=== PATIENT | female | born 1945 | race Caucasian/White ===

== ENCOUNTER 2018-12-30 14:02 | Emergency (ER) | payer MEDICARE, BC ==
--- NOTE | 2018-12-30 16:07 | RAD ---
Exam:4 views left HISTORY: Fall. Pain. COMPARISON: None FINDINGS: Nondisplaced fracture involving the fifth metacarpal. No evidence of intra-articular extens ion. Mild degenerative change in the distal interphalangeal joint space of the first digit. IMPRESSION: Fifth metacarpal fracture.
== END 2018-12-30 15:45 | disposition home or self-care (01) ==
LOC: SCSER 14:02
DX: S62.397A Other fracture of fifth metacarpal bone, left hand, initial encounter for closed fracture (principal); E11.9 Type 2 diabetes mellitus without complications; E78.5 Hyperlipidemia, unspecified; I10 Essential (primary) hypertension; F32.9 Major depressive disorder, single episode, unspecified; F41.9 Anxiety disorder, unspecified; W18.2XXA Fall in (into) shower or empty bathtub, initial encounter
CPT/HCPCS: 29125; 93005

== ENCOUNTER 2019-01-10 19:33 | Emergency (ER) | payer MEDICARE, BC ==
[2019-01-10 20:07] LABS: #Basophils 0.1 thou/uL (0.0-0.2); #Eosinphils 0.1 thou/uL (0.0-0.7); #Lymphocytes 1.8 thou/uL (1.20-3.40); #Monocytes 0.6 thou/uL (0.11-0.59); #Neutrophils 2.9 thou/uL (1.40-6.50); %Basophils 1.5 % (0.0-1.0); %Eosinophils 2.2 % (0.0-10.0); %Lymphocytes 32.7 % (21.0-51.0); %Monocytes 10.1 % (0.0-10.0); %Neutrophils 53.6 % (42.0-75.0); Hemoglobin 12.1 g/dL (12.0-16.0); Mean Corpuscular HGB CONC 32.6 g/dL (32.0-36.0); Mean Corpuscular Hemoglobin 28.1 pg (27.0-31.0); Mean Corpuscular Volume 86.2 fL (78.0-98.0); Platelet Count 266 thou/uL (130-400); RBC Distribution Width 15.3 % (11.5-14.5); Red Blood Cell (RBC) Count 4.31 mill/uL (4.20-5.40); White Blood Cell (WBC) Count 5.5 thou/uL (4.8-10.8)
[2019-01-10 20:11] LABS: Bilirubin Negative (Negative); Blood, Urine Trace (Negative); Clarity Hazy (Clear); Glucose, Urine (Dipstick) Negative (Negative); Leukocyte Large (Negative); Nitrite Negative (Negative); Protein, Urine (Dipstick) Negative (Neg-Trace); Urobilinogen 0.2 mg/dL (Less than 2)
[2019-01-10 20:11] LABS: PTT 26.3 SEC (22.9-36.1); Prothrombin Time 12.9 SEC (12.0-14.7)
--- NOTE | 2019-01-10 20:12 | CT ---
CT Brain WO Con HISTORY: Fall with altered mental status. COMPARISON: None. FINDINGS: There is generalized ventricular and sulcal prominence. Decreased attenuation to the perive ntricular white matter is consistent with chronic white matter change. There are no signs of intracerebral hemorrhage or extra-axial fluid collections. The mastoid air cells and visualized sinus es are clear. IMPRESSION: No acute intracranial abnormalities.
[2019-01-10 20:21] LABS: Bacteria/HPF 2+ HPF (None Seen); RBC/HPF 0-3 HPF (0-3); WBC/HPF 21-50 HPF (0-3)
[2019-01-10 20:21] LABS: ALT (SGPT) 14 U/L (8-55); AST (SGOT) 15 U/L (5-34); Albumin 4.3 g/dL (3.4-4.8); Alkaline Phosphatase 123 U/L (40-150); Anion Gap 14 mmol/L (10-20); BUN (Urea Nitrogen) 15 mg/dL (9.8-20.1); Bilirubin, Total 0.5 mg/dL (0.2-1.2); Calc. Creatinine Clearance 0 mL/min (70-130); Calcium 9.5 mg/dL (7.8-10.44); Carbon Dioxide 24 mmol/L (23-31); Chloride 107 mmol/L (98-107); Estimated GFR-MDRD 66; Globulin 2.5 g/dL (2.4-3.5); Glucose 168 mg/dL (83-110); Potassium 3.9 mmol/L (3.5-5.1); Protein, Total 6.8 g/dL (6.0-8.3); Sodium 141 mmol/L (136-145)
--- NOTE | 2019-01-10 20:24 | RAD ---
XR Chest 1 View Portable HISTORY: Fall in shower. COMPARISON: None. FINDINGS: Heart size is enlarged. Mediastinal structures are unremarkable. The lungs are clear of inf iltrates. No rib fractures identified. IMPRESSION: Cardiomegaly.
[2019-01-10] MEDS ORDERED: cefTRIAXone\\ROCEPHIN 1 GM VIAL ONE (20:30)
[2019-01-10] MEDS ORDERED: Lidocaine 1% PF 5 ML VIAL ONE (20:30)
== END 2019-01-10 20:59 | disposition home or self-care (01) ==
LOC: SCSER 19:33
DX: R41.82 Altered mental status, unspecified (principal); N39.0 Urinary tract infection, site not specified; Z86.73 Personal history of transient ischemic attack (TIA), and cerebral infarction without residual deficits; E11.9 Type 2 diabetes mellitus without complications; E78.5 Hyperlipidemia, unspecified; I10 Essential (primary) hypertension; F41.9 Anxiety disorder, unspecified; F32.9 Major depressive disorder, single episode, unspecified; Z79.899 Other long term (current) drug therapy; Z79.84 Long term (current) use of oral hypoglycemic drugs
CPT/HCPCS: 36415; 70450; 71045; 80053; 81003; 81015; 85025; 85610; 85730; 87086; 96372; J0696; J2001

== ENCOUNTER 2019-01-26 11:39 | Emergency (ER) | payer MEDICARE, BC ==
--- NOTE | 2019-01-26 12:08 | CT ---
Head CT without contrast 01/26/2019: COMPARISON: 01/10/2019 HISTORY: Altered mental status TECHNIQUE: Axial CT imaging at 5 mm intervals from vertex through skull base without contrast FINDINGS: The imaged paranasal sinuses and mastoid air cells are well aerated. No displaced calvarial fracture is seen. No intracranial hemorrhage, midline shift, mass effect, or ventricular enlargement. Mild periventricular hypodensity suggests small vessel disease. IMPRESSION: No acute findings.
--- NOTE | 2019-01-26 12:18 | CT ---
CT cervical spine: 01/26/2019 COMPARISON: None HISTORY: Pain TECHNIQUE: Axial CT imaging at 2.5 mm intervals from skull base through lung apices without contrast. Coronal and sagittal reformatted imaging obtained. FINDINGS: The visualized paranasal sinuses and mastoid air cells are unremarkable. The dens, occipita l condyles, C1-2 articulation, and dens demonstrate no acute findings. The visualized lung apices are unremarkable. There is moderate degenerative change at the atlantoaxial interspace. Craniocervical junction and cer vicothoracic junction are unremarkable. No prevertebral soft tissue swelling. No displaced fracture or evidence of dislocation is noted. IMPRESSION: No acute osseous abnormality.
--- NOTE | 2019-01-26 12:24 | CT ---
CT of the facial bones: 01/26/2019 COMPARISON: None HISTORY: Pain TECHNIQUE: Axial CT imaging at 2.5 mm intervals through the facial bones without contrast. Coronal an d sagittal reformatted imaging obtained. FINDINGS: There is degenerative change at the atlantoaxial interspace. The frontal sinuses, ethmoid air cells, sphenoid sinuses, and left maxillary sinus appear within norm al limits. There is mild mucosal thickening involving the alveolar recess of the right maxillary sinus. Imaged portions of the mastoid air cells appear within normal limits. The nasal bones, zygomatic arches, and pterygoid plates are unremarkable. There is prominent degenerative change involving the bilateral temporomandibular joints. There is no acute fracture of the mandible or maxilla. There is subtle enophthalmos on the right. There is mild soft tissue swelling overlying the right orbit inferiorly. On the coronal reformatted imaging there i s a subtle fracture involving the orbital floor on the right with approximately 3 mm of inferior displacement. The left orbital floor appears intact on the coronal imaging. The medial orbital wall i s intact bilaterally. IMPRESSION: Right periorbital soft tissue swelling with a right orbital floor fracture and mild assoc iated right enophthalmos.
[2019-01-26 12:31] LABS: #Lymphocytes 1.1 thou/uL (1.20-3.40); #Monocytes 0.5 thou/uL (0.11-0.59); #Neutrophils 4.6 thou/uL (1.40-6.50); %Basophils 0.6 % (0.0-1.0); %Eosinophils 0.3 % (0.0-10.0); %Lymphocytes 17.9 % (21.0-51.0); %Monocytes 7.4 % (0.0-10.0); %Neutrophils 73.8 % (42.0-75.0); Hemoglobin 13.1 g/dL (12.0-16.0); Mean Corpuscular HGB CONC 33.7 g/dL (32.0-36.0); Mean Corpuscular Hemoglobin 28.4 pg (27.0-31.0); Mean Corpuscular Volume 84.4 fL (78.0-98.0); Mean Platelet Volume 7.8 fL (7.4-10.4); Platelet Count 231 thou/uL (130-400); RBC Distribution Width 14.5 % (11.5-14.5); White Blood Cell (WBC) Count 6.3 thou/uL (4.8-10.8)
[2019-01-26 12:55] LABS: ALT (SGPT) 16 U/L (8-55); AST (SGOT) 15 U/L (5-34); Acetaminophen Less than 6.0 mcg/mL (10.0-30.0); Albumin 4.6 g/dL (3.4-4.8); Alcohol Less than 10 mg/dL (Less than 10); Alkaline Phosphatase 137 U/L (40-150); Anion Gap 13 mmol/L (10-20); BUN (Urea Nitrogen) 19 mg/dL (9.8-20.1); Bilirubin, Total 0.6 mg/dL (0.2-1.2); Calc. Creatinine Clearance 0 mL/min (70-130); Carbon Dioxide 25 mmol/L (23-31); Chloride 102 mmol/L (98-107); Estimated GFR-MDRD 67; Globulin 2.3 g/dL (2.4-3.5); Glucose 119 mg/dL (83-110); Potassium 3.9 mmol/L (3.5-5.1); Protein, Total 6.9 g/dL (6.0-8.3); Salicylate Less than 8.0 mg/dL (15.0-30.0); Sodium 136 mmol/L (136-145)
[2019-01-26 15:10] LABS: Bilirubin Negative (Negative); Blood, Urine Negative (Negative); Glucose, Urine (Dipstick) Negative (Negative); Leukocyte Negative (Negative); Nitrite Negative (Negative); Protein, Urine (Dipstick) Negative (Neg-Trace); Urobilinogen 0.2 mg/dL (Less than 2)
[2019-01-26 15:16] LABS: Clarity Clear (Clear)
[2019-01-26 15:21] LABS: Cocaine Metabolite Screen Not Detected (NotDetected); Medtox Reader # READER 4; Methamphetamine Not Detected (NotDetected); Opiate Screen Not Detected (NotDetected); Phencyclidine (PCP) Not Detected (NotDetected); THC/Cannabinoid Screen Not Detected (NotDetected)
[2019-01-26 15:22] LABS: Amphetamine Not Detected (NotDetected); Barbiturates Screen Not Detected (NotDetected); Benzodiazepine Screen Detected (NotDetected); Medtox Control Line Valid? VALID (VALID); Methadone Not Detected (NotDetected); Oxycodone Screen Not Detected (NotDetected); Tricyclic Screen Not Detected (NotDetected)
[2019-01-26] MEDS ORDERED: Haloperidol Lactate 5 MG/ML VIAL ONE (16:49)
== END 2019-01-26 23:55 ==
LOC: ERS 11:39
DX: S00.83XA Contusion of other part of head, initial encounter (principal); F29 Unspecified psychosis not due to a substance or known physiological condition; F22 Delusional disorders; E11.9 Type 2 diabetes mellitus without complications; E78.5 Hyperlipidemia, unspecified; E78.00 Pure hypercholesterolemia, unspecified; I10 Essential (primary) hypertension; F41.9 Anxiety disorder, unspecified; F32.9 Major depressive disorder, single episode, unspecified; Z79.01 Long term (current) use of anticoagulants; Z79.899 Other long term (current) drug therapy; Z86.73 Personal history of transient ischemic attack (TIA), and cerebral infarction without residual deficits; Z79.84 Long term (current) use of oral hypoglycemic drugs; X58.XXXA Exposure to other specified factors, initial encounter
CPT/HCPCS: 70450; 70486; 72125; 80053; 80306; 80307; 81003; 84443; 84484; 85025; 93005; 96374; J1630

== ENCOUNTER 2020-05-19 18:52 | Inpatient (IN) | payer MEDICARE, BC ==
--- NOTE | 2020-05-19 19:26 | RAD ---
EXAM: CHEST ONE VIEW HISTORY: Altered mental status. COMPARISON: 01/10/2019 FINDINGS: Cardiac silhouette is enlarged. The pulmonary vasculature is within normal limits. The lungs are cl r. Large hiatal hernia is seen in the midline. Osteopenia is present. No other interval change IMPRESSION: 1. Large hiatal hernia. 2. Cardiomegaly. 3. No acute cardiopulmonary process. 4. Osteopenia.
[2020-05-19 19:33] LABS: #Eosinphils 0.1 thou/uL (0.0-0.7); #Lymphocytes 1.2 thou/uL (1.20-3.40); #Monocytes 0.9 thou/uL (0.11-0.59); #Neutrophils 9.2 thou/uL (1.40-6.50); %Basophils 0.4 % (0.0-1.0); %Eosinophils 0.8 % (0.0-10.0); %Lymphocytes 10.4 % (21.0-51.0); %Monocytes 8.1 % (0.0-10.0); %Neutrophils 80.3 % (42.0-75.0); Hemoglobin 13.2 g/dL (12.0-16.0); Mean Corpuscular HGB CONC 33.2 g/dL (32.0-36.0); Mean Corpuscular Hemoglobin 29.5 pg (27.0-31.0); Mean Corpuscular Volume 88.7 fL (78.0-98.0); Mean Platelet Volume 7.9 fL (7.4-10.4); Platelet Count 233 thou/uL (130-400); RBC Distribution Width 12.7 % (11.5-14.5); Red Blood Cell (RBC) Count 4.49 mill/uL (4.20-5.40); White Blood Cell (WBC) Count 11.4 thou/uL (4.8-10.8)
[2020-05-19 19:54] LABS: ALT (SGPT) 8 U/L (8-55); AST (SGOT) 12 U/L (5-34); Albumin 3.9 g/dL (3.4-4.8); Alkaline Phosphatase 87 U/L (40-110); Anion Gap 19 mmol/L (10-20); BUN (Urea Nitrogen) 16 mg/dL (9.8-20.1); Bilirubin, Total 0.4 mg/dL (0.2-1.2); Calc. Creatinine Clearance 0 mL/min (70-130); Calcium 9.2 mg/dL (7.8-10.44); Carbon Dioxide 18 mmol/L (23-31); Chloride 105 mmol/L (98-107); Globulin 2.6 g/dL (2.4-3.5); Glucose 118 mg/dL (83-110); Magnesium 1.8 mg/dL (1.6-2.6); Potassium 3.8 mmol/L (3.5-5.1); Protein, Total 6.5 g/dL (6.0-8.3); Sodium 138 mmol/L (136-145)
--- NOTE | 2020-05-19 19:56 | CT ---
CT HEAD WITHOUT IV CONTRAST COMPARISON: 01/11/2020 HISTORY: Altered mental status TECHNIQUE: Axial CT imaging at 5 mm intervals from vertex through skull base without contrast FINDINGS: There is decreased attenuation in the periventricular white matter which is nonspecific but likely re flective of chronic small vessel ischemic changes. There is mild cerebral volume loss. The ventricular system is normal in size, shape, and position for the degree of sulcal atrophy. There is no evidence of an acute cortical infarction, hemorrhage, mass effect, or midline shift. Skull base has a normal CT appearance. Visualized paranasal sinuses are clear. Osseous structures appear intact. CT head is stable compared to prior exam. IMPRESSION: 1. No acute intracranial abnormality demonstrated. 2. Chronic small vessel ischemic changes and cerebral volume loss.
[2020-05-19 20:19] LABS: Bilirubin Negative (Negative); Blood, Urine Trace (Negative); Glucose, Urine (Dipstick) Negative (Negative); Ketone, Urine Trace mg/dL (Negative); Leukocyte Negative (Negative); Nitrite Negative (Negative); Protein, Urine (Dipstick) Negative (Neg-Trace); Urobilinogen 0.2 mg/dL (Less than 2); pH, Urine 6.5 (5.0-9.0)
[2020-05-19 20:20] LABS: Clarity Clear (Clear)
[2020-05-19 20:25] LABS: Bacteria/HPF None Seen HPF (None Seen); RBC/HPF None Seen HPF (0-3); Squamous Epithelial 0-3 HPF (0-3); WBC/HPF None Seen HPF (0-3)
[2020-05-19] MEDS ORDERED: Aspirin Chewable 81 MG TAB ONE (21:50)
[2020-05-19] MEDS ORDERED: Acetaminophen 325 MG TAB PO PRN (22:07)
[2020-05-19 22:36] LABS: Hemoglobin A1c 5.6 % (4.0-6.0)
[2020-05-19 22:47] LABS: Phosphorus 3.9 mg/dL (2.3-4.7)
[2020-05-20] MEDS: Lactated Ringer's 1,000 ML IV SCH ×3 (00:12→21:41)
[2020-05-20 01:08] VITALS: BMI 19.1
--- NOTE | 2020-05-20 04:23 | PDOC.FPRHP ---
- History of Present Illness Chief Complaint: AMS, weakness History of Present Illness: Patient is a 74 yo female with PMH of Lewey body dementia, TIA, DMII, and HLD who present via EMS for AMS and possibly syncope. According to the patient's daughter, earlier this evening (around 1700) the patient began having difficulty answering questions. She is typically AAOx3 and able to identify her daughter and granddaughter, however she was unable to do so. EMS was called and while the patient was being transported outside on the seat of her walker, she slumped over and her lips became blue. The daughter believes that she was also breathing very shallow during this time. Daughter denies any fever/chills, complaints of chest pain or SOB, N/V/D, or sick contacts. The patient is incontinent at baseline and has a history of UTIs in the past. Denies any change in appetite, decreased PO intake, or difficulty swallowing. ED Course: Aspiring 324 mg - Allergies/Adverse Reactions Allergies Allergy/AdvReac Type Severity Reaction Status Date / Time No Known Allergies Allergy Verified 01/11/20 21:34 - Home Medications Medication Instructions Recorded Confirmed Type Clopidogrel Bisulfate [Plavix] 75 mg PO DAILY 01/11/20 05/20/20 History Divalproex [Depakote] 2 tab PO HS 01/11/20 05/20/20 History Divalproex [Depakote] 125 mg PO DAILY 01/11/20 05/20/20 History FLUoxetine HCl 60 mg PO DAILY 01/11/20 05/20/20 History metFORMIN [Glucophage] 500 mg PO BID-WM 01/11/20 05/20/20 History traZODone HCl [Trazodone HCl] 50 mg PO HS 01/11/20 05/20/20 History Donepezil HCl [Aricept] 10 mg PO HS 05/20/20 05/20/20 History QUEtiapine Fumarate [Seroquel] 50 mg PO DAILY 05/20/20 05/20/20 History QUEtiapine Fumarate [Seroquel] 100 mg PO HS 05/20/20 05/20/20 History - History PMHx: Lewey body dementia, TIA, DMII, and HLD PSHx: bilateral knee replacement, Csection x2 FHx: noncontributory Social: lives with daughter, last week due to COVID, grandda giorgi is nurse at [employer], eddie t/a/d - Review of Systems General: reports: weight/appetite/sleep changes (reports weightloss, but denies appetite changes). denies: fever/chills Eyes: denies: vision changes ENT: denies: nasal congestion Respiratory: denies: cough, shortness of breath Cardiovascular: denies: chest pain, edema Gastrointestinal: denies: nausea, vomiting, diarrhea, abdominal pain Genitourinary: reports: incontinence, other (foul smelling urine) Skin: denies: rashes, jaundice Musculoskeletal: denies: pain Neurological: reports: syncope, weakness Psychological: reports: depression - Vital signs BP: 120/68 HR: 79 RR: 18 Tmax: 97.9 Pox: 99% on RA Wt: 55kg - Physical Exam Constitutional: NAD -Constitutional: AAO to person and time, appears to have difficulty forming sentences but answers appropriately when able to HEENT: normocephalic and atraumatic, PERRLA, EOMI Neck: supple Heart: RRR, normal S1/S2 Lungs: CTAB, no respiratory distress Abdomen: soft, non-tender, bowel sounds present Musculoskeletal: normal structure, normal tone -Neurological: diffuse weakness with 4/5 strength throughout, appears to have difficult forming sentences Skin: no rash/lesions, no jaundice Heme/Lymphatic: no unusual bruising or bleeding, no purpura, no petechia Psychiatric: normal mood and affect FMR H&P: Results - Labs Result Diagrams: 05/20/20 04:52 05/20/20 04:52 Lab results: WBC 11.4 thou/uL (4.8-10.8) H 05/19/20 19:18 Hgb 13.2 g/dL (12.0-16.0) 05/19/20 19:18 Hct 39.8 % (36.0-47.0) 05/19/20 19:18 MCV 88.7 fL (78.0-98.0) 05/19/20 19:18 Plt Count 233 thou/uL (130-400) 05/19/20 19:18 Neutrophils % 80.3 % (42.0-75.0) H 05/19/20 19:18 Sodium 138 mmol/L (136-145) 05/19/20 19:18 Potassium 3.8 mmol/L (3.5-5.1) 05/19/20 19:18 Chloride 105 mmol/L (98-107) 05/19/20 19:18 Carbon Dioxide 18 mmol/L (23-31) L 05/19/20 19:18 BUN 16 mg/dL (9.8-20.1) 05/19/20 19:18 Creatinine 0.80 mg/dL (0.6-1.1) 05/19/20 19:18 Glucose 118 mg/dL (83-110) H 05/19/20 19:18 Calcium 9.2 mg/dL (7.8-10.44) 05/19/20 19:18 Total Bilirubin 0.4 mg/dL (0.2-1.2) 05/19/20 19:18 AST 12 U/L (5-34) 05/19/20 19:18 ALT 8 U/L (8-55) 05/19/20 19:18 Alkaline Phosphatase 87 U/L (40-110) 05/19/20 19:18 Serum Total Protein 6.5 g/dL (6.0-8.3) 05/19/20 19:18 Albumin 3.9 g/dL (3.4-4.8) 05/19/20 19:18 Urine Ketones Trace mg/dL (Negative) A 05/19/20 19:59 Urine Blood Trace (Negative) 05/19/20 19:59 Urine Nitrite Negative (Negative) 05/19/20 19:59 Ur Leukocyte Esterase Negative (Negative) 05/19/20 19:59 Urine RBC None Seen HPF (0-3) 05/19/20 19:59 Urine WBC None Seen HPF (0-3) 05/19/20 19:59 Ur Squamous Epith Cells 0-3 HPF (0-3) 05/19/20 19:59 Urine Bacteria None Seen HPF (None Seen) 05/19/20 19:59 - Radiology Interpretation Chest x-ray Status: image reviewed by me, report reviewed by me Additional comment: large hiatal hernia, cardiomegaly, no acute process, osteopenia CT scan - head Status: image reviewed by me, report reviewed by me Additional comment: No acute abnormality, small vessel changes FMR H&P: A/P - Problem List (1) Aphasia Current Visit: Yes Status: Acute Code(s): R47.01 - APHASIA (2) Syncope Current Visit: No Status: Acute Code(s): R55 - SYNCOPE AND COLLAPSE (3) Diabetes mellitus, type 2 Current Visit: No Status: Chronic (4) Lewy body dementia Current Visit: No Status: Chronic Code(s): G31.83 - DEMENTIA WITH LEWY BODIES; F02.80 - DEMENTIA IN OTH DISEASES CLASSD ELSWHR W/O BEHAVRL DISTURB (5) Hyperlipidemia Current Visit: Yes Status: Acute Code(s): E78.5 - HYPERLIPIDEMIA, UNSPECIFIED - Plan Possible TIA vs. CVA vs. worsening dementia - patient appears to have difficulty forming sentences, typically AAOx3 and able to converse easily - CT: no acute abnormality - Will obtain MRI in the morning - Will order mag, phos, TSH, lipid panel - patient's recently , could consider depression as possibly etiology - NPO pending bedside swallow - will continue to monitor on stroke unit Possibly syncope - episode of slumping in chair reported by family - continuous cardiac monitoring while hospitalized - recent echo (01/17): EF 40-45% - will obtain orthostatics Hx of TIA - aware, will continue clopidogrel Lewey body dementia - could be potential cause of the above - will continue home med HLD - will obtain lipid panel - due to patient's age, shared decision making should be made regarding starting statin DMII - continue home metformin PCP: Jeremiah Code: DNR IVF: LR 100 mls/hr DVT ppx: Lovenox GI ppx: protonix Dispo: Admit to stroke for further evaluation; likely LOS < 48 hours FMR H&P: Upper Level - Plan Date/Time: 05/20/20 0423 Chrissy Simmons, have evaluated this patient and agree with findings/plan as outlined by internet site designer resident. Pertinent changes/additions are listed here. 74 yo F presents from home with daughter. PMH significant for Lewy body dementia, T2DM, TIA (2013), HLD. Daughter reports that around 5 PM she started having difficulty communicating. She called EMS. When EMS arrived, pt had an episode where she slumped in her chair, became unresponsive, and became blue around the lips. Pt is AOx3 at baseline per daughter but has a poor memory. Of note, her last week, daughter thinks she is not aware of his . Associated symptoms include diffuse weakness. Pt reports some low abdominal discomfort. ED: CT head negative, given ASA 324 mg CXR no acute process, no evidence UTI. Mild WBC of 11.4 with L shift. Physical exam: General: elderly female, lying in bed Neuro/Psych: CN 2-12 grossly intact. Diffuse upper and lower extremity weakness 4/5. Decreased hearing. Pt appears to have difficulty with speaking, answers with 1 word answers. Cardiac: RRR Lungs: BCTA TIA vs CVA -Appears to have expressive aphasia on exam -differential includes worsening dementia, depression, seizure, constipation/urinary retention, delirium -Admit to stroke -CT negative, MRI in AM -TSH, FLP, mag, and phos ordered - bladder scan to check for urinary retention, pt incontinent at baseline -Prolactin was wnl -Speech/PT/OT consulted, post acute screen ordered. NPO for speech. Possible syncopal episode -tele monitoring overnight -Orthostatics pending -consider CTA head/neck to look for arterial stenosis -Echo 01/12/20 EF 40-45% Leukocytosis -L shift present, uncertain of etiology of leukocytosis -CXR and U cx neg for signs infection -Procal pending Lewy Body dementia -continue home meds T2DM -continue home metformin -hyperglycemia protocol, mild SSI HTN -continue home meds Depression/anxiety: -continue home meds Diet: NPO for speech, then HH, CC DVT ppx: lovenox GI ppx: protonix PCP: Jeremiah ROSSI Dispo: Admit to stroke for monitoring. MRI in the AM. LOS likely >2 midnights. Addendum - Attending - Attending Attestation Date/Time: 05/20/20 0627 I personally evaluated the patient and discussed the management with the team on 05/19. I agree with the History, Examination, Assessment and Plan documented above with any addition or exceptions noted below.
[2020-05-20 05:06] LABS: #Eosinphils 0.1 thou/uL (0.0-0.7); #Lymphocytes 1.9 thou/uL (1.20-3.40); #Monocytes 0.8 thou/uL (0.11-0.59); #Neutrophils 4.7 thou/uL (1.40-6.50); %Basophils 0.6 % (0.0-1.0); %Eosinophils 1.4 % (0.0-10.0); %Lymphocytes 25.2 % (21.0-51.0); %Neutrophils 62.8 % (42.0-75.0); Hemoglobin 11.8 g/dL (12.0-16.0); Mean Corpuscular HGB CONC 33.7 g/dL (32.0-36.0); Mean Corpuscular Hemoglobin 29.7 pg (27.0-31.0); Mean Corpuscular Volume 88.1 fL (78.0-98.0); Mean Platelet Volume 7.8 fL (7.4-10.4); Platelet Count 219 thou/uL (130-400); RBC Distribution Width 12.6 % (11.5-14.5); Red Blood Cell (RBC) Count 3.96 mill/uL (4.20-5.40); White Blood Cell (WBC) Count 7.5 thou/uL (4.8-10.8)
[2020-05-20] MEDS ORDERED: Dextrose 5% in Water 1,000 ML IV PRN (05:06)
[2020-05-20] MEDS ORDERED: HumaLOG 300 UNITS/3 ML VIAL SC PRN (05:06)
[2020-05-20] MEDS ORDERED: Dextrose 50% Abboject 50 ML SYRINGE SLOW IVP PRN (05:06)
[2020-05-20 05:25] LABS: Anion Gap 13 mmol/L (10-20); BUN (Urea Nitrogen) 15 mg/dL (9.8-20.1); Calc. Creatinine Clearance 61 mL/min (70-130); Calcium 8.8 mg/dL (7.8-10.44); Carbon Dioxide 24 mmol/L (23-31); Cardiac Risk 5.1 (Less than 4.5); Chloride 106 mmol/L (98-107); Cholesterol 218 mg/dl (< 200 Desired); Glucose 113 mg/dL (83-110); HDL Cholesterol 43 mg/dL (>60 Neg Risk); LDL Cholesterol, Calculated 144 mg/dL; Potassium 3.5 mmol/L (3.5-5.1); Sodium 139 mmol/L (136-145); Triglycerides 155 mg/dL (Less than 150)
[2020-05-20 05:29] LABS: SARS-CoV-2 MS2 Positive; SARS-CoV-2 N Gene Negative; SARS-CoV-2 S Gene Negative; SARS-CoV-2 by NAA Not Detected (NotDetected); SARS-CoV-2 orf1ab Negative
[2020-05-20] MEDS ORDERED: FLU VACC QS2020-21(65YR UP)/PF 240 MCG/0.7 ML SYRINGE IM ONE (09:00)
--- NOTE | 2020-05-20 09:14 | MRI ---
MRI of thebrain: 05/20/2020 COMPARISON:Head CT 05/19/2020 HISTORY:Altered mental status, TIA TECHNIQUE: Multiplanar multisequence MR imaging of thebrain without contrast Findings:The diffusion weighted imaging demonstrates no evidence for acute infarction. The axial gradient echo imaging demonstrates a focus of blooming artifact in the occipital lobe on th e right suggesting calcification or remote hemorrhage. Blooming artifact within the medial basal ganglia noted as well, likely on the basis of calcification. There is increased T2 and FLAIR signal w ithin the periventricular and subcortical white matter as well as within the ericka, evidence of small vessel disease. The imaged paranasal sinuses and mastoid air cells appear unremarkable. There is mild diffuse cerebra l volume loss. Arterial flow voids at the axial level of the skull base appear unremarkable on the T2-weighted imaging. Regional bone marrow signal intensity unremarkable. IMPRESSION:Volume loss and small vessel disease. No evidence for acute infarction.
[2020-05-20] MEDS: Enoxaparin Sodium 40 MG/0.4 ML SYRINGE SC SCH (09:44)
[2020-05-20] MEDS: Pantoprazole 40 MG VIAL IVP SCH (09:45)
[2020-05-20] MEDS: metFORMIN 500 MG TAB PO SCH ×2 (09:46→16:17)
[2020-05-20] MEDS: FLUoxetine HCl 20 MG CAP PO SCH (09:46)
[2020-05-20] MEDS: Divalproex Sodium 125 mg Sprinkle Capsule PO SCH (09:46)
[2020-05-20] MEDS: Clopidogrel Bisulfate 75 MG TAB PO SCH (09:46)
[2020-05-20] MEDS: Aspirin 81 mg Enteric Coated Tablet PO SCH (09:47)
[2020-05-20] MEDS ORDERED: Iopamidol 370 76% 100 ML VIAL ONE (10:36)
--- NOTE | 2020-05-20 14:09 | PDOC.PALCO ---
Palliative Care Consult - Consult Details Requesting Physician: Dr Rizzo Reason for Consult: family support, complex decision-making - Pertinent HPI Mrs Francisco is a 74 year old female with decline over the past year. Recent hospitalization 12/2019. Noteworthy is her this past week after being on hospice services. Mrs Cramer has known diagnosis of lewy body dementia, TIA, DMII, and experienced a syncopal episode at home. Prior to syncopal event she had difficulty answering questions beyond her known baseline. EMS was called, it was in transport to EMS vehicle that patient experienced syncopal episode with shallow respirations. No known sick contacts, fever, nausea, vomiting, chills or cough. Transported to [facility], evaluated and admitted for further evaluation. - Pertinent PMH Lewey body dementia, TIA, DMII, HDL - Social History Smoking Status: Never smoker Smoking: no tobacco exposure Alcohol Use: none Drug Use History: none Living Situation: other (Lives with her daughter in an independent setting) - Medications MAR Reviewed: Yes - Allergies Allergies/Adverse Reactions: Allergies Allergy/AdvReac Type Severity Reaction Status Date / Time No Known Allergies Allergy Verified 01/11/20 21:34 - Subjective Awake, alert and converses. Ambulatory at baseline with assist. Incontinent of bowel and bladder. Not oriented, confusion. Denies complaints, poor historian for review of systems related to dementia. - ROS Non Response: due to mental status - Objective Vital Signs: Vital Signs - Most Recent Temp Pulse Resp BP Pulse Ox 98.3 F 97 14 138/60 72 L 05/20/20 11:10 05/20/20 11:10 05/20/20 11:10 05/20/20 11:10 05/20/20 11:10 Palliative Performance Scale: 40 - Physical Exam Constitutional: ill appearing HEENT: EOMI, moist MMs, sclera anicteric Respiratory: no rales, no rhonchi, unlabored breathing Cardiovascular: RRR Gastrointestinal: soft, non-tender, incontinent Genitourinary: incontinent Musculoskeletal: no clubbing, edema present, diffuse muscle atrophy Deviation from normal: facial symmetry Skin: cap refill <2 seconds Deviation from normal: Oriented to self - Problem List (1) Palliative care encounter Code(s): Z51.5 - ENCOUNTER FOR PALLIATIVE CARE Current Visit: Yes Status: Acute (2) Syncope Code(s): R55 - SYNCOPE AND COLLAPSE Current Visit: No Status: Acute (3) Dementia Code(s): F03.90 - UNSPECIFIED DEMENTIA WITHOUT BEHAVIORAL DISTURBANCE Current Visit: No Status: Chronic (4) Diabetes mellitus, type 2 Current Visit: No Status: Chronic (5) Lewy body dementia Code(s): G31.83 - DEMENTIA WITH LEWY BODIES; F02.80 - DEMENTIA IN OTH DISEASES CLASSD ELSWHR W/O BEHAVRL DISTURB Current Visit: No Status: Chronic - Plan/Recommendations Plan: Palliative care initiated contact with patient daughter Christie. Christie is requesting hospice evaluation, her father was on hospice and she is familiar with services. She is wanting to avoid recurrent admissions and seek comfort measures for her mother. *confirmed DNAR status. *In relation to hospice criteria More than 2 hospital admissions in past 6 months, Dementia, incontinent/decline/still ambulatory with assistance Syncope/TIA *Secondary to multiple morbidities Mrs Francisco may meet criteria, will need hospice evaluation to confirm. *If [facility] not accepting may consider home health/palliative care with transition as appropriate *Previously with [facility]. Please also refer to Palliative Care notes in note section. [50] minutes spent on this encounter with >50% of the time in counseling and coordination of care. Thank you for this very appropriate consult.
--- NOTE | 2020-05-20 14:58 | CT ---
CT angiogram head CT angiogram neck: 05/20/2020 COMPARISON: None HISTORY: Altered mental status, episode of becoming unresponsive with perioral cyanosis TECHNIQUE: Axial CT imaging at 5 mm intervals from the vertex through the skull base without contrast . Axial CT imaging then obtained with IV contrast using CT angiogram protocol. Axial CT imaging provide d at 1.25 mm intervals from the lung apices through the vertex using CT angiogram protocol with coronal and sagittal 3-D reformatted imaging FINDINGS: There is a partially visualized mass within the left upper lobe on axial image 1 measuring 1.5 cm. The partial imaged lung apices otherwise unremarkable. Noncontrast enhanced head CT demonstrates no intracranial hemorrhage, midline shift, or mass effect. There is diffuse cerebral volume loss. Periventricular and deep white matter hypodensity in bilateral frontal lobes present, evidence of small vessel disease. Imaged paranasal sinuses and mastoid air cells are well-aerated. No displaced calvarial fracture. The origin of the innominate artery, left subclavian artery, and left common carotid artery is unrema rkable. Origin of right subclavian and right common carotid artery unremarkable. Bilateral vertebral arteries are tortuous proximally. Bilateral vertebral arteries demonstrate patency with no hemodynamically significant stenosis. On the basis of NASCET criteria, the common carotid artery and the internal carotid artery demonstrat e no hemodynamically significant stenosis. The basilar artery and its branches appear patent. There is no saccular aneurysm, high-grade stenosis , or vascular occlusion seen involving the posterior circulation. The A1 segment and the distal SHAZIA branches appear unremarkable bilaterally. The M1 segment and MCA bifurcation appears grossly unremarkable bilaterally. No saccular aneurysm, hi gh-grade stenosis, or vascular occlusion is seen involving the anterior circulation. The retroantral fat, parapharyngeal fat, parotid glands, and submandibular glands are grossly unremar kable bilaterally. The tonsillar pillars, epiglottis and preepiglottic fat, hyoid bone, thyroid gland, cricoid cartilage, and thyroid cartilage demonstrate no acute findings. There is a nodule in the right lobe of the thyroid gland which is heterogeneous and measures 1.3 cm. Recommend thyroid ultrasound. There is small volume fluid in the superior pericardial recess. Review of the osseous structures demonstrates no acute findings. IMPRESSION: No hemodynamically significant stenosis involving the arterial structures of the neck on the basis of NASCET criteria. No acute intracranial abnormality. Right thyroid nodule for which follow-up ultrasound is advised. Left upper lobe pulmonary parenchymal mass, incompletely imaged on this examination. Recommend furthe r assessment via chest CT CODE T Code LN Transcribed Date/Time: 05/20/2020 2:58 PM
--- NOTE | 2020-05-20 15:58 | ULT ---
Thyroid sonogram HISTORY: Thyroid nodule. FINDINGS: Right thyroid lobe is 2.2 cm length. At the superior pole is a well-circumscribed oval hete rogeneous slightly hypoechoic mass without internal calcification. It is 1.7 cm x 1.5 cm x 0.9 cm depth. Left thyroid lobe is 3.1 cm. Isthmus is 0.5 cm. No additional nodules. IMPRESSION : Right thyroid lobe nodule 1.7 cm. TI RADS 4. Moderately suspicious. Based on the size, tissue sampling with FNA (sonographic guided) is recommended.
[2020-05-20] MEDS ORDERED: traZODone HCl 50 MG TAB PO SCH (21:00)
[2020-05-20] MEDS ORDERED: Divalproex Sodium 125 mg Sprinkle Capsule PO SCH ×2 (21:00→21:45)
[2020-05-20] MEDS ORDERED: Donepezil HCl 5 MG TAB PO SCH (21:00)
[2020-05-21 05:14] LABS: #Eosinphils 0.2 thou/uL (0.0-0.7); #Lymphocytes 1.1 thou/uL (1.20-3.40); #Monocytes 0.4 thou/uL (0.11-0.59); #Neutrophils 2.4 thou/uL (1.40-6.50); %Basophils 0.3 % (0.0-1.0); %Eosinophils 4.1 % (0.0-10.0); %Lymphocytes 26.5 % (21.0-51.0); %Monocytes 10.2 % (0.0-10.0); %Neutrophils 58.8 % (42.0-75.0); Hemoglobin 11.3 g/dL (12.0-16.0); Mean Corpuscular HGB CONC 33.5 g/dL (32.0-36.0); Mean Corpuscular Hemoglobin 30.1 pg (27.0-31.0); Mean Corpuscular Volume 90.1 fL (78.0-98.0); Mean Platelet Volume 7.8 fL (7.4-10.4); Platelet Count 181 thou/uL (130-400); RBC Distribution Width 12.7 % (11.5-14.5); Red Blood Cell (RBC) Count 3.74 mill/uL (4.20-5.40); White Blood Cell (WBC) Count 4.1 thou/uL (4.8-10.8)
[2020-05-21 05:31] LABS: Anion Gap 13 mmol/L (10-20); BUN (Urea Nitrogen) 9 mg/dL (9.8-20.1); Calc. Creatinine Clearance 63 mL/min (70-130); Calcium 8.4 mg/dL (7.8-10.44); Carbon Dioxide 26 mmol/L (23-31); Chloride 107 mmol/L (98-107); Glucose 102 mg/dL (83-110); Potassium 3.5 mmol/L (3.5-5.1); Sodium 142 mmol/L (136-145)
--- NOTE | 2020-05-21 05:49 | PDOC.FM ---
- Subjective Subjective: Mrs. Francisco is feeling well this morning and denies CP/SOB/pain. She is A&Ox1. - Objective Vital Signs & Weight: Vital Signs (12 hours) Temp Pulse Resp BP Pulse Ox 05/21/20 04:00 99.1 F 70 16 178/80 H 96 05/21/20 00:00 98.2 F 66 16 158/74 H 96 05/20/20 20:00 98.3 F 72 18 133/64 97 Weight Admit Weight 55.202 kg Weight 55.202 kg I&O: 05/19/20 05/20/20 05/21/20 06:59 06:59 06:59 Intake Total 669 1269 Output Total 2200 Balance 669 -931 Result Diagrams: 05/21/20 04:35 05/21/20 04:35 Phys Exam - Physical Examination Constitutional: NAD Neck: supple Respiratory: clear to auscultation bilateral Cardiovascular: RRR, no significant murmur Gastrointestinal: soft, non-tender, no distention, positive bowel sounds Musculoskeletal: no edema Neurological: non-focal, moves all 4 limbs Psychiatric: normal affect Deviation from normal: A&Ox1 Skin: no rash Dx/Plan - Plan Plan: This is a 74F who was brought to the ED by family after a period of abrupt-onset altered mentation from baseline. Possible TIA vs. CVA vs. worsening dementia - Typically A&Ox3 and able to converse easily, per family * This am, A&Ox1 - Brain MRI and CT, CTA head/neck: no acute vascular/parenchymal abnormalities - Mag, phos, TSH, A1c nml - Lipid panel shows elevated TGs and total chol - [employer] bedside swallow: regular textures, CC - admit to stroke unit w q4h neuro checks - Family requesting hospice Possibly syncope - episode of slumping in chair reported by family - continuous cardiac monitoring while hospitalized - recent echo (01/17): EF 40-45% - Orthostatics neg Lewy body dementia - could be potential cause of the above - will continue home med Thyroid nodule - CTA head/neck showed R thyroid nodule. Family has requested investigation for fully-informed transition to hospice - Thyroid U/S showed moderately suspicious nodule with rec for FNA. Will discuss with family today Lung mass - CTA head and neck found MAGAN mass. Family has requested investigation for fully-informed transition to hospice - CT chest pending Hx of TIA - aware, will continue clopidogrel HLD - Lipid panel shows elevated TGs and total chol - due to patient's family seeking hospice, will not start statin DMII - continue home metformin - hypoglycemia protocol - ACHS checks PCP: Jeremiah Code: DNR IVF: LR 100 mls/hr DVT ppx: Lovenox GI ppx: protonix Dispo: Admit to stroke for further evaluation; likely discharge today, pending r esults of imaging.
[2020-05-21] MEDS: Lactated Ringer's 1,000 ML IV SCH ×2 (06:35→09:43)
[2020-05-21] MEDS: Enoxaparin Sodium 40 MG/0.4 ML SYRINGE SC SCH (08:38)
[2020-05-21] MEDS: Aspirin 81 mg Enteric Coated Tablet PO SCH (08:38)
[2020-05-21] MEDS: metFORMIN 500 MG TAB PO SCH (08:38)
[2020-05-21] MEDS: FLUoxetine HCl 20 MG CAP PO SCH (08:38)
[2020-05-21] MEDS: Clopidogrel Bisulfate 75 MG TAB PO SCH (08:38)
[2020-05-21] MEDS: Divalproex Sodium 125 mg Sprinkle Capsule PO SCH (08:38)
[2020-05-21] MEDS: Pantoprazole 40 MG VIAL IVP SCH (08:39)
--- NOTE | 2020-05-21 09:47 | CT ---
EXAM: CT Chest W Con PROVIDED CLINICAL HISTORY: Pulmonary nodule COMPARISON: None FINDINGS: There is small volume pericardial fluid. Vascular calcification including coronary calcium is demonst rated. There is a 2.2 cm enhancing nodule within the left upper lobe anteriorly immediately lateral to the p ulmonary outflow tract. No additional significant pulmonary parenchymal abnormality is evident. There is small-volume bilateral pleural fluid. There is no evidence for pneumothorax. There is no eriberto dence for thoracic lymph node enlargement. There is a large hiatal hernia. Hypodensities are seen involving the liver compatible with cysts. A partially visualized cystic struc ture seen involving the left kidney, the visualized portions of which are compatible with a cyst. The osseous structures demonstrate no concerning lytic or blastic lesions. Remote appearing mild supe rior endplate compression deformity is noted involving T9. IMPRESSION: 1. 2.2 cm left upper lobe pulmonary nodule suspicious for malignancy. 2. Small volume pericardial and bilateral pleural fluid. 3. Other findings as described.
[2020-05-21] MEDS ORDERED: Iopamidol-370 76% 500 ML 1 ML ONE (10:49)
[2020-05-21 11:49] VITALS: BP 132/62; TEMP 98.1
[2020-05-21] MEDS ORDERED: Divalproex Sodium 125 mg Sprinkle Capsule PO SCH (21:00)
--- NOTE | 2020-05-22 14:15 | DIS ---
DATE OF ADMISSION: 05/20/2020 DATE OF DISCHARGE: 05/21/2020 ADMITTING ATTENDING: Blue Kaur MD. DISCHARGE ATTENDING: Tonny Hedrick MD. CONSULT: None. PROCEDURES: 1. Brain CT, chest x-ray (05/19). 2. CTA, CT brain, brain MRI, and thyroid ultrasound (05/20). 3. Chest CT (05/21). PRIMARY DIAGNOSES: Metabolic encephalopathy, likely 2/2, worsening dementia. SECONDARY DIAGNOSES: 1. Lewy body dementia. 2. Thyroid nodule. 3. Lung mass. 4. History of transient ischemic attack. 5. Hyperlipidemia. 6. Type 2 diabetes mellitus. DISCHARGE MEDICATIONS: 1. ASA 81 mg p.o. daily. 2. Tylenol 650 mg p.o. q.4h p.r.n. 3. Depakote 250 mg two tabs p.o. at bedtime. 4. Depakote 125 mg p.o. q.a.m. 5. Metformin 500 mg p.o. b.i.d. 6. Fluoxetine 60 mg p.o. daily. 7. Plavix 75 mg p.o. daily. 8. Trazodone 50 mg p.o. at bedtime. 9. Seroquel 100 mg p.o. at bedtime. 10. Seroquel 50 mg p.o. q.a.m. 11. Donepezil 10 mg p.o. at bedtime. DISCONTINUED MEDICATIONS: None. HISTORY OF PRESENT ILLNESS/HOSPITAL COURSE: This is a 74-year-old female who was brought to the ED for altered mental status and possible syncopal episode. She was accompanied by her daughter when she began having difficulty answering questions, was unable to identify her daughter and granddaughter, and became very confused. EMS was called and when the patient was being transferred outside, she slumped over, and her lips became blue. At baseline, the patient is A and O x3, but on arrival was A and O x1. CT and MRI of the brain, CTA head/neck showed no acute vascular/parenchymal abnormalities. All labs were normal including electrolytes, TSH, A1c. CTA head/neck showed a right thyroid nodule as well as a left upper lobe lung mass. The family had decided on transitioning to home hospice, but requested investigation of these masses for a fully informed transition to hospice. Thyroid ultrasound showed a moderately suspicious nodule with recommendations for FNA which the family declined. CT of the chest showed a left upper lobe nodule consistent with malignancy; family declined biopsy. As such, the patient was discharged home on hospice. DISPOSITION: Stable. DISCHARGE INSTRUCTIONS: LOCATION: Home on hospice. DIET: Regular. ACTIVITY: As tolerated. FOLLOWUP: The patient is encouraged to follow up with her PCP as needed. Job ID: [id number] MTDD
--- NOTE | 2020-05-23 01:30 | PQF ---
CLINICAL DOCUMENTATION CLARIFICATION FORM: Dear : Blue Kaur Date / Time: 05/23/2020 1195 Please exercise your independent, professional judgment in responding to the clarification form. Clinical indicators are provided on the bottom of this form for your review In your clinical opinion based on clinical findings below, can you please identify the etiology of Altered mental status if due to: Please check appropriate box(es): [ ] TIA [ x ] Dementia [ ] CVA [ ] Other diagnosis [ ] Unable to determine Physician Signature: Date/Time: For continuity of documentation, please document condition throughout progress notes and discharge summary. Thank You. To be completed by CDI/Coding staff for physician review: Present Clinical Indicators - Signs / Symptoms / Labs Results and Location in Medical Record [x] MRI Brain: Impression: Volume loss and small vessel disease. No evidence of Acute infarction Imaging Dr Muñoz 05/20 [x] CT brain: No acute intracranial abnormality demonstrated. Chronic small vessel ischemic changes and cerebral volume loss Imaging Dr Manzano 05/19 [x] BP 120/68, Pulse 79, Resp 18, Temp 97.9 Vital signs 05/19 [x] Presents with AMS and possibly syncope H&P p1 05/19 Dr Collins [x] Aphasia H&P p4 05/19 Dr Collins [x] Possible TIA vs CVA vs worsening Dementia H&P p4 05/19 Dr Collins Present Risk Factors Results and Location in Medical Record [x] 74 year-old Female H&P p1 05/19 Dr Collins [x] Lewey body dementia H&P p1 05/19 Dr Collins [x] Hx of TIA H&P p1 05/19 Dr Collins [x] DM H&P p1 05/19 Dr Collins [x] HLD H&P p1 05/19 Dr Collins Present Treatments Results and Location in Medical Record [x] IVF NS 1L AUG 09 [x] Seroquel 50 mg oral AUG 09 [x] IV Lactated Ringers 1L AUG 09 [x] Depakote Sprinkle 125 mg oral AUG 09 [x] Monitor on stroke unit H&P p4 05/19 Dr Collins CDS/Coder Operator Signature: Lu Jacobs Phone #: ext [phone] Date/Time: 05/23/2020 0130 This is a permanent part of the Medical Record [facility]
== END 2020-05-21 15:05 | disposition hospice, home (50) | DRG 57 ==
LOC: ERS 18:52 → 2SE 20:55 → OBSVTOIN 05-20 17:22
PROVIDERS: ADMIT Emergency Medicine; ATTEND Emergency Medicine
DX: G31.83 Neurocognitive disorder with Lewy bodies (principal); R47.01 Aphasia; Z20.828 Contact with and (suspected) exposure to other viral communicable diseases; Z66 Do not resuscitate; Z23 Encounter for immunization; Z51.5 Encounter for palliative care; F02.80 Dementia in other diseases classified elsewhere, unspecified severity, without behavioral disturbance, psychotic disturbance, mood disturbance, and anxiety; E11.9 Type 2 diabetes mellitus without complications; E78.5 Hyperlipidemia, unspecified; Z96.653 Presence of artificial knee joint, bilateral; E78.00 Pure hypercholesterolemia, unspecified; F41.9 Anxiety disorder, unspecified; F32.9 Major depressive disorder, single episode, unspecified; E04.1 Nontoxic single thyroid nodule; R91.8 Other nonspecific abnormal finding of lung field; Z86.73 Personal history of transient ischemic attack (TIA), and cerebral infarction without residual deficits; Z79.899 Other long term (current) drug therapy; Z79.02 Long term (current) use of antithrombotics/antiplatelets; Z79.84 Long term (current) use of oral hypoglycemic drugs
CPT/HCPCS: 36415; 36416; 70450; 70496; 70498; 70551; 71045; 71260; 76536; 80048; 80053; 80061; 81003; 83036; 83735; 84100; 84145; 84146; 84443; 84484; 85025; 87040; 87086; 87635; 90471; 90662; 93005; 96372; 96375; 96376; C9113; G0008; G0378; J1650; Q9967; U0003